=== PATIENT | female | born 1990 | race Caucasian/White ===

== ENCOUNTER → 2019-06-05 16:18 | Observation (INO) ==
[2019-06-05 15:13] LABS: Bilirubin,Urine Small (Negative); Blood,Urine Negative (Negative); Clarity,Urine Turbid (Clear); Color,Urine Dark Yellow (Yellow); Glucose,Urine (UA) Normal (Normal); Ketones,Urine Negative (Negative); Leukocyte Esterase,Urine Large (Negative); Nitrite,Urine Negative (Negative); Protein,Urine Trace mg/dL (Neg-Trace); Specific Gravity,Urine 1.023 (1.010-1.025)
[2019-06-05 15:16] LABS: Bacteria,Urine Many per hpf (None-Few); Hyaline Casts,Urine Moderate per lpf (None-Few); RBC,Urine 0-3 per hpf (0-3); Squamous Epithelial Cell,Urine Many per lpf (None-Few); WBC,Urine TNTC per hpf (0-3)
[2019-06-05 15:25] LABS: Calcium Oxalate Crystals,Urine Present
[2019-06-05 15:33] LABS: Amphetamine Screen,Urine Negative ng/mL (Cutoff=1000); Barbiturate Screen,Urine Negative ng/mL (Cutoff=200); Benzodiazepines Screen,Urine Negative ng/mL (Cutoff=200); Cannabinoid Screen,Urine Negative ng/mL (Cutoff = 50); Cocaine Screen,Urine Negative ng/mL (Cutoff= 300); Opiate Screen,Urine Negative ng/mL (Cutoff=300); Phencyclidine Screen,Urine Negative ng/mL (Cutoff=25)
--- NOTE | 2019-06-05 16:09 | Discharge Summary ---
Date of Encounter: 06/05/19 Time of Encounter: 16:08 - Discharge Diagnosis (1) 33 weeks gestation of Priority: Primary Status: Acute Comments: Admit to observation for labor evaluation (2) NST (non-stress test) reactive Priority: Secondary Status: Acute Comments: Category I tracing, appropriate for gestational age. (3) Urinary tract infection during in third trimester, antepartum Priority: Secondary Status: Acute Comments: Macrobid bid x 5 days Urine culture sent - Discharge Medications Prescriptions: New Nitrofurantoin (BID) [Macrobid] 100 mg PO BID #10 capsule No Action Vitamin Tablet 1 tab PO DAILY Nystatin POWDER [Nystop] 1 appl TP BID #30 gm metroNIDAZOLE [Metronidazole] 500 mg PO BID #14 tablet Home Medications: Nystatin POWDER [Nystop] 1 appl TP BID #30 gm 03/03/19 [Rx] Vitamin Tablet 1 tab PO DAILY 03/03/19 [History] metroNIDAZOLE [Metronidazole] 500 mg PO BID #14 tablet 03/03/19 [Rx] Nitrofurantoin (BID) [Macrobid] 100 mg PO BID #10 capsule 06/05/19 [Rx] Allergies/Adverse Reactions: Allergy/AdvReac Type Severity Reaction Status Date / Time No Known Allergies Allergy Verified 10/21/17 10:12 Data Procedures and tests throughout hospitalization: Laboratory Tests 06/05/19 06/05/19 15:06 15:07 Ur Specimen Adequacy See below A Urine Color Dark Yellow Urine Clarity Turbid A Urine pH 7.0 Ur Specific [place] 1.023 Urine Protein Trace Urine Glucose (UA) Normal Urine Ketones Negative Urine Blood Negative Urine Nitrite Negative Urine Bilirubin Small H Urine Urobilinogen 4.0 H Ur Leukocyte Esterase Large H Urine Microscopic RBC 0-3 Urine Microscopic WBC TNTC H Ur Squamous Epith Cells Many H Calcium Oxalate Crystal Present Urine Bacteria Many H Hyaline Casts Moderate H Ur Culture Indicated? YES A Urine Opiates Screen Negative Ur Buprenorphine Scrn Negative Ur Barbiturates Screen Negative Ur Phencyclidine Scrn Negative Ur Amphetamines Screen Negative U Benzodiazepines Scrn Negative Urine Cocaine Screen Negative U Marijuana (THC) Screen Negative Ur Drug Screen Interp See Below Labs on day of discharge: Labs from last 24 hours 06/05/19 06/05/19 15:07 15:06 Ur Specimen Adequacy See below A Urine Color Dark Yellow Urine Clarity Turbid A Urine pH 7.0 Ur Specific [place] 1.023 Urine Protein Trace Urine Glucose (UA) Normal Urine Ketones Negative Urine Blood Negative Urine Nitrite Negative Urine Bilirubin Small H Urine Urobilinogen 4.0 H Ur Leukocyte Esterase Large H Urine Microscopic RBC 0-3 Urine Microscopic WBC TNTC H Ur Squamous Epith Cells Many H Calcium Oxalate Crystal Present Urine Bacteria Many H Hyaline Casts Moderate H Ur Culture Indicated? YES A Urine Opiates Screen Negative Ur Buprenorphine Scrn Negative Ur Barbiturates Screen Negative Ur Phencyclidine Scrn Negative Ur Amphetamines Screen Negative U Benzodiazepines Scrn Negative Urine Cocaine Screen Negative U Marijuana (THC) Screen Negative Ur Drug Screen Interp See Below Date of admission: 06/05/19 14:15 Primary care physician: Delfin Montalvo MD Discharging clinician: Dannielle Tee Anticipated date of discharge: 06/05/19 - Patient Status Disposition: Home, Self-Care Condition: Good Functional capacity at discharge: independent ambulation Overall status at discharge: patient is progressing back to baseline - Discharge Instructions Follow Up With: Delfin Montalvo MD [Primary Care Provider] - Ranjith Shannon DO [Partnered Physician] - Additional Instructions: LABOR AND DELIVERY DISCHARGE INSTRUCTIONS Signs and Symptoms to be Reported to your Doctor Immediately: * Sudden gush, continuous or intermittent lead of fluid from vagina (note the time of gush and color of fluid) * Onset of bright red vaginal bleeding with or without pain (if you had a vaginal exam during this visit you may notice some dark red spotting. This is normal.) * Lower abdominal cramping or backache that is premenstrual-like feeling. * More than 6 contractions in one hour. * Burning during urination, having to urinate more frequently or pain in your mid-back. * A change in the baby's activity. This could be an increase or decrease in activity. * Severe headache which does not go away with tylenol. * Sudden swelling in the face, hands, arms and/or legs. * Upper abdominal pain - sometimes associated with heartburn or nausea and is not relieved by Maalox, Mylanta or Tums. * Dizziness or blurred vision or visual disturbances (seeing stars/lights). * Kick Counts One hour after a meal, lay down on one side in a quiet place. Count the number of irving the baby moves during an hour. If less than 6 movements, notify your physician. Diet: *Force fluids - 8-10 tall glasses of fluid per day. May include popsicles and jello. *Limit caffeine - this includes chocolate, coffee, tea, any soft drink containing such as all leana, [place] Yellow and Mountain Dew Keep scheduled follow up appt with Dr Shannon - Diet and Activity Activity: resume usual activities as tolerated Diet: regular diet Hospital Course [employer] Hospital course: Patient arrived with complaint of pelvic pain and pressure. She does report posi tive movement and denies fluid leakage and bleeding. Reactive FHR was noted and rare contractions. UA revealed signs of UTI so patient was prescribed 5 days of Macrobid. Urine culture was sent and patient informed she would be called if antibiotic change was needed based on culture result. SVE 1/thick/high. She is to follow up with Dr. Shannon on Wednesday as scheduled for routine care. Time Attestation: Total time spent providing and/or coordinating discharge services: Time Spent: Less than 30 minutes Exam - Constitutional General appearance IM: A&O X 3, pleasant, no acute distress, answers questions appropriately - Respiratory Respiratory exam: Present: CTAB. Absent: respiratory distress - Cardiovascular Cardiovascular exam IM: Present: RRR, +S1, +S2. Absent: irregular rhythm - GI/Abdominal GI/Abdominal exam IM: normal bowel sounds Incision: normal, dry, intact - Rectal Rectal exam: deferred - External exam: normal external exam (slight suprapubic tenderness) - Extremities Exam Extremities exam IM: Present: full ROM, normal capillary refill, normal inspection. Absent: calf tenderness - Neurological Exam Neurological exam: alert, normal gait, oriented X3 - VTE Reasons for not Prescribing Prophylaxis: Treatment not Indicated - Low risk for VTE
== END | disposition home or self-care (01) ==
LOC: 1NENULAB
PROVIDERS: ADMIT Obstetrics & Gynecology; ATTEND Obstetrics & Gynecology

== ENCOUNTER 2019-06-07 17:08 | Observation (INO) ==
[2019-06-07 17:49] VITALS: BP 113/78
--- NOTE | 2019-06-13 11:23 | OB/GYN Progress Note ---
Date of Encounter: 06/07/19 Time of Encounter: 18:00 - Assessment and Plan (1) 34 weeks gestation of Status: Acute Follow up as scheduled PTL precautions given Discharge home (2) Pelvic pressure in Status: Acute UA - culture pending. Subjective - Subjective Interval history: Pt presents with c/o pain and pressure in the pelvic area. Endorses good fm and denies lof, vb, ctx. Antepartum ROS: new complaints Objective - Exam FHR: category 1 Auscultation: bilateral: normal Abdomen: Present: normal appearance, soft, gravid Uterus: Present: normal, firm
== END 2019-06-07 18:09 | disposition home or self-care (01) ==
LOC: 1NENULAB
PROVIDERS: ADMIT Obstetrics & Gynecology; ATTEND Obstetrics & Gynecology

== ENCOUNTER → 2019-06-14 16:43 | Observation (INO) ==
[2019-06-14 16:29] LABS: Bilirubin,Urine Negative (Negative); Blood,Urine Negative (Negative); Clarity,Urine Cloudy (Clear); Color,Urine Yellow (Yellow); Glucose,Urine (UA) Normal (Normal); Ketones,Urine Negative (Negative); Leukocyte Esterase,Urine Moderate (Negative); Nitrite,Urine Negative (Negative); Protein,Urine Negative (Neg-Trace); Urobilinogen,Urine Normal (Normal)
[2019-06-14 16:33] LABS: Bacteria,Urine Few per hpf (None-Few); Hyaline Casts,Urine None Seen per lpf (None-Few); RBC,Urine 0-3 per hpf (0-3); Squamous Epithelial Cell,Urine Many per lpf (None-Few)
[2019-06-14 16:39] LABS: Amphetamine Screen,Urine Negative ng/mL (Cutoff=1000); Barbiturate Screen,Urine Negative ng/mL (Cutoff=200); Benzodiazepines Screen,Urine Negative ng/mL (Cutoff=200); Cannabinoid Screen,Urine Negative ng/mL (Cutoff = 50); Cocaine Screen,Urine Negative ng/mL (Cutoff= 300); Opiate Screen,Urine Negative ng/mL (Cutoff=300); Phencyclidine Screen,Urine Negative ng/mL (Cutoff=25)
--- NOTE | 2019-06-16 08:43 | OB/GYN Progress Note ---
Date of Encounter: 06/14/19 Time of Encounter: 18:30 - Assessment and Plan (1) 35 weeks gestation of Status: Acute Reactive NST No cervical change from previous exam in L&D Urine normal Discharge home with PTL precautions and follow up in office as scheduled. (2) NST (non-stress test) reactive Status: Acute (3) Pelvic pressure in Status: Acute Subjective - Subjective Principal diagnosis: Labor evaluation Interval history: Patient assessed by nurses. Not mine. Feeling pressure. Vaginal exam no change from previous exam. NST reactive. Antepartum ROS: movement normal Objective - Exam FHR: category 1 - Labs Labs: Abnormal lab results Urine Clarity Cloudy (Clear) A 06/14/19 16:00 Ur Leukocyte Esterase Moderate (Negative) H 06/14/19 16:00 Urine Microscopic WBC 3-5 per hpf (0-3) H 06/14/19 16:00 Ur Squamous Epith Cells Many per lpf (None-Few) H 06/14/19 16:00 Ur Culture Indicated? YES (NO) A 06/14/19 16:00
== END | disposition home or self-care (01) ==
LOC: 1NENULAB
PROVIDERS: ADMIT Advanced Practice Midwife; ATTEND Advanced Practice Midwife

== ENCOUNTER 2019-06-19 10:15 | Observation (INO) ==
[2019-06-19 11:14] LABS: Bilirubin,Urine Negative (Negative); Blood,Urine Negative (Negative); Clarity,Urine Cloudy (Clear); Color,Urine Yellow (Yellow); Glucose,Urine (UA) Normal (Normal); Ketones,Urine Negative (Negative); Leukocyte Esterase,Urine Large (Negative); Nitrite,Urine Negative (Negative); PH,Urine 7.5 pH Units (5.0-8.0); Protein,Urine Negative (Neg-Trace); Specific Gravity,Urine 1.015 (1.010-1.025); Urobilinogen,Urine Normal (Normal)
[2019-06-19 11:19] LABS: Hyaline Casts,Urine None Seen per lpf (None-Few); RBC,Urine 0-3 per hpf (0-3); Squamous Epithelial Cell,Urine Many per lpf (None-Few)
[2019-06-19 11:44] LABS: Bacteria,Urine Many per hpf (None-Few)
[2019-06-19 11:47] LABS: Yeast,Urine Few per hpf (None Seen)
[2019-06-19 13:10] LABS: Candida DNA DETECTED (Not Detect); Gardnerella DNA Not Detected (Not Detect); Trichomonas DNA Not Detected (Not Detect)
--- NOTE | 2019-06-19 13:29 | Discharge Summary ---
Date of Encounter: 06/19/19 Time of Encounter: 13:29 - Discharge Diagnosis (1) 35 weeks gestation of Priority: Primary Status: Acute Comments: Admit to observation for complaint of possible SROM (2) Candidiasis of vagina during Priority: Secondary Status: Acute Comments: Treat with Terazol cream (3) NST (non-stress test) reactive Priority: Secondary Status: Acute Comments: FHR 130 bpm, moderate variability, +15x15 accels, no decels. - Discharge Medications Prescriptions: New Terconazole Vag CRM [Terazol] 1 appl VG HS 3 Days #1 tube No Action Vitamin Tablet 1 tab PO DAILY raNITIdine HCl [Zantac] 150 mg PO BID Home Medications: Vitamin Tablet 1 tab PO DAILY 03/03/19 [History] Terconazole Vag CRM [Terazol] 1 appl VG HS 3 Days #1 tube 06/19/19 [Rx] raNITIdine HCl [Zantac] 150 mg PO BID 06/19/19 [History] Allergies/Adverse Reactions: Allergy/AdvReac Type Severity Reaction Status Date / Time No Known Allergies Allergy Verified 10/21/17 10:12 Data Procedures and tests throughout hospitalization: Laboratory Tests 06/19/19 06/19/19 06/19/19 10:45 10:45 11:13 Urine Color Yellow Urine Clarity Cloudy A Urine pH 7.5 Ur Specific [place] 1.015 Urine Protein Negative Urine Glucose (UA) Normal Urine Ketones Negative Urine Blood Negative Urine Nitrite Negative Urine Bilirubin Negative Urine Urobilinogen Normal Ur Leukocyte Esterase Large H Urine Microscopic RBC 0-3 Urine Microscopic WBC 5-15 H Ur Squamous Epith Cells Many H Urine Bacteria Many H Hyaline Casts None Seen Urine Yeast Few H Ur Culture Indicated? YES A Ur Drug Screen Interp See Below Glenda species DNA DETECTED A Gardnerella DNA Probe Not Detected Trichomonas DNA Probe Not Detected Labs on day of discharge: Labs from last 24 hours 06/19/19 06/19/19 06/19/19 11:13 10:45 10:45 Urine Color Yellow Urine Clarity Cloudy A Urine pH 7.5 Ur Specific [place] 1.015 Urine Protein Negative Urine Glucose (UA) Normal Urine Ketones Negative Urine Blood Negative Urine Nitrite Negative Urine Bilirubin Negative Urine Urobilinogen Normal Ur Leukocyte Esterase Large H Urine Microscopic RBC 0-3 Urine Microscopic WBC 5-15 H Ur Squamous Epith Cells Many H Urine Bacteria Many H Hyaline Casts None Seen Urine Yeast Few H Ur Culture Indicated? YES A Ur Drug Screen Interp See Below Glenda species DNA DETECTED A Gardnerella DNA Probe Not Detected Trichomonas DNA Probe Not Detected Preliminary micro results at discharge 06/19/19 10:45 Urine Culture - Preliminary Urine,Clean Catch Culture is incubating. Date of admission: 06/19/19 10:15 Primary care physician: Delfin Montalvo MD Discharging clinician: Dannielle Tee Anticipated date of discharge: 06/19/19 - Patient Status Disposition: Home, Self-Care Condition: Good Functional capacity at discharge: independent ambulation Overall status at discharge: patient is progressing back to baseline - Discharge Instructions Follow Up With: Delfin Montalvo MD [Primary Care Provider] - Ranjith Shannon DO [Partnered Physician] - - Diet and Activity Activity: resume usual activities as tolerated Diet: regular diet Hospital Course [employer] Hospital course: Patient arrived with complaint of possible SROM this morning at 0800. Denies any vaginal intercourse in the past 48 hours. She does report positive movement and denies vaginal bleeding and contractions. Sterile speculum exam reveals no amniotic fluid in the vaginal vault or with valsalva maneuver. FERN was negative as well as nitrazine paper. Vaginosis panel did return positive for yeast, so she was given a prescription for Terazol cream. Patient is to return to OB for routine appointment as scheduled. Time Attestation: Total time spent providing and/or coordinating discharge services: Time Spent: Less than 30 minutes Exam - Constitutional General appearance IM: A&O X 3, no acute distress - Respiratory Respiratory exam: Absent: respiratory distress - Cardiovascular Cardiovascular exam IM: Present: RRR, +S1, +S2. Absent: irregular rhythm - GI/Abdominal GI/Abdominal exam IM: normal bowel sounds, soft - Rectal Rectal exam: deferred - External exam: normal external exam - Extremities Exam Extremities exam IM: Present: full ROM, normal capillary refill, normal inspection. Absent: calf tenderness - Neurological Exam Neurological exam: alert, normal gait, oriented X3 - VTE Reasons for not Prescribing Prophylaxis: Treatment not Indicated - Low risk for VTE
[2019-06-19 14:46] LABS: Amphetamine Screen,Urine Negative ng/mL (Cutoff=1000); Barbiturate Screen,Urine Negative ng/mL (Cutoff=200); Benzodiazepines Screen,Urine Negative ng/mL (Cutoff=200); Cannabinoid Screen,Urine Negative ng/mL (Cutoff = 50); Cocaine Screen,Urine Negative ng/mL (Cutoff= 300); Opiate Screen,Urine Negative ng/mL (Cutoff=300); Phencyclidine Screen,Urine Negative ng/mL (Cutoff=25)
== END 2019-06-19 13:56 | disposition home or self-care (01) ==
LOC: 1NENULAB
PROVIDERS: ADMIT Registered Nurse; ATTEND Registered Nurse

== ENCOUNTER 2019-06-25 19:23 | Observation (INO) ==
[2019-06-25 20:54] LABS: Amphetamine Screen,Urine Negative ng/mL (Cutoff=1000); Barbiturate Screen,Urine Negative ng/mL (Cutoff=200); Benzodiazepines Screen,Urine Negative ng/mL (Cutoff=200); Cannabinoid Screen,Urine Negative ng/mL (Cutoff = 50); Cocaine Screen,Urine Negative ng/mL (Cutoff= 300); Opiate Screen,Urine Negative ng/mL (Cutoff=300); Phencyclidine Screen,Urine Negative ng/mL (Cutoff=25)
== END 2019-06-25 20:50 | disposition home or self-care (01) ==
LOC: 1NENULAB
PROVIDERS: ADMIT Advanced Practice Midwife; ATTEND Advanced Practice Midwife

== ENCOUNTER 2019-06-27 12:51 | Observation (INO) ==
[2019-06-27 13:56] LABS: Bilirubin,Urine Negative (Negative); Blood,Urine Trace (Negative); Clarity,Urine Clear (Clear); Color,Urine Dark Yellow (Yellow); Glucose,Urine (UA) Normal (Normal); Ketones,Urine Negative (Negative); Leukocyte Esterase,Urine Moderate (Negative); Nitrite,Urine Negative (Negative); PH,Urine 6.5 pH Units (5.0-8.0); Protein,Urine Trace mg/dL (Neg-Trace); Specific Gravity,Urine 1.023 (1.010-1.025); Urobilinogen,Urine Normal (Normal)
[2019-06-27 13:59] LABS: Bacteria,Urine Moderate per hpf (None-Few); Hyaline Casts,Urine None Seen per lpf (None-Few); RBC,Urine 15-30 per hpf (0-3); Squamous Epithelial Cell,Urine Many per lpf (None-Few); WBC,Urine 15-30 per hpf (0-3)
[2019-06-27 14:24] LABS: Amphetamine Screen,Urine Negative ng/mL (Cutoff=1000); Barbiturate Screen,Urine Negative ng/mL (Cutoff=200); Benzodiazepines Screen,Urine Negative ng/mL (Cutoff=200); Cannabinoid Screen,Urine Negative ng/mL (Cutoff = 50); Cocaine Screen,Urine Negative ng/mL (Cutoff= 300); Opiate Screen,Urine Negative ng/mL (Cutoff=300); Phencyclidine Screen,Urine Negative ng/mL (Cutoff=25)
== END 2019-06-27 14:36 | disposition home or self-care (01) ==
LOC: 1NENULAB
PROVIDERS: ADMIT Advanced Practice Midwife; ATTEND Advanced Practice Midwife

== ENCOUNTER → 2019-07-03 01:57 | Observation (INO) ==
[2019-07-03 00:56] LABS: Bilirubin,Urine Negative (Negative); Blood,Urine Negative (Negative); Clarity,Urine Cloudy (Clear); Color,Urine Yellow (Yellow); Glucose,Urine (UA) Normal (Normal); Ketones,Urine Negative (Negative); Leukocyte Esterase,Urine Small (Negative); Nitrite,Urine Negative (Negative); Protein,Urine Trace mg/dL (Neg-Trace); Specific Gravity,Urine 1.018 (1.010-1.025); Urobilinogen,Urine Normal (Normal)
[2019-07-03 00:58] LABS: Bacteria,Urine Few per hpf (None-Few); Hyaline Casts,Urine None Seen per lpf (None-Few); RBC,Urine 0-3 per hpf (0-3); Squamous Epithelial Cell,Urine Many per lpf (None-Few)
[2019-07-03 01:05] LABS: Amphetamine Screen,Urine Negative ng/mL (Cutoff=1000); Barbiturate Screen,Urine Negative ng/mL (Cutoff=200); Benzodiazepines Screen,Urine Negative ng/mL (Cutoff=200); Cannabinoid Screen,Urine Negative ng/mL (Cutoff = 50); Cocaine Screen,Urine Negative ng/mL (Cutoff= 300); Opiate Screen,Urine Negative ng/mL (Cutoff=300); Phencyclidine Screen,Urine Negative ng/mL (Cutoff=25)
[2019-07-03 02:37] LABS: Candida DNA Not Detected (Not Detect); Gardnerella DNA Not Detected (Not Detect); Trichomonas DNA Not Detected (Not Detect)
== END | disposition home or self-care (01) ==
LOC: 1NENULAB
PROVIDERS: ADMIT Registered Nurse; ATTEND Registered Nurse

== ENCOUNTER 2019-07-09 05:55 | Inpatient (IN) ==
[2019-07-09] MEDS ORDERED: Ringers Solution, Lactated 1,000 ML ONE (06:00)
[2019-07-09] MEDS ORDERED: Metoclopramide 10 MG/2 ML VIAL IVP PRN (06:30)
[2019-07-09] MEDS ORDERED: Ringers Solution, Lactated 1,000 ML IVC SCH (06:30)
[2019-07-09] MEDS ORDERED: *HR* Nalbuphine 10 MG/ML AMPUL IVP PRN (06:30)
[2019-07-09] MEDS ORDERED: Naloxone 0.4 MG/ML INJ IVP PRN (06:30)
[2019-07-09] MEDS ORDERED: Famotidine 20 MG/2 ML VIAL IVP PRN (06:30)
[2019-07-09] MEDS ORDERED: Ondansetron 4 MG/2 ML VIAL IVP PRN (06:30)
[2019-07-09] MEDS ORDERED: miSOPROStoL 25 MCG TABLET VG PRN (06:30)
[2019-07-09 07:19] LABS: Basophils # 0.1 K/mcL (0.0-0.2); Basophils % 0.6 %; Eosinophils # 0.2 K/mcL (0.0-0.6); Eosinophils % 1.7 %; Hematocrit 37.9 % (35.3-44.9); Hemoglobin 13.2 g/dL (11.5-15.4); Immature Granulocytes % 0.4 % (0-4); Lymphocytes # 2.5 K/mcL (0.6-4.6); Lymphocytes % 25.7 %; Mean Corpuscular HGB Conc 34.8 g/dL (31.6-35.5); Mean Corpuscular Hemoglobin 30.2 pg (28.0-33.3); Mean Corpuscular Volume 86.7 fL (83.0-100.0); Mean Platelet Volume 10.9 fL (9.4-12.4); Monocytes # 0.9 K/mcL (0.0-1.3); Monocytes % 9.1 %; Neutrophils # 6.1 K/mcL (1.6-8.9); Platelet Count 254 K/mcL (140-400); Red Blood Count 4.37 M/mcL (3.82-4.97); Red Cell Distribution Width 12.8 % (11.5-14.5); Segmented Neutrophils % 62.5 %; White Blood Count 9.8 K/mcL (4.3-11.1)
[2019-07-09 09:13] LABS: Amphetamine Screen,Urine Negative ng/mL (Cutoff=1000); Barbiturate Screen,Urine Negative ng/mL (Cutoff=200); Benzodiazepines Screen,Urine Negative ng/mL (Cutoff=200); Cannabinoid Screen,Urine Negative ng/mL (Cutoff = 50); Cocaine Screen,Urine Negative ng/mL (Cutoff= 300); Opiate Screen,Urine Negative ng/mL (Cutoff=300); Phencyclidine Screen,Urine Negative ng/mL (Cutoff=25)
[2019-07-09] MEDS ORDERED: Oxytocin 20 units/ LR 1000 mL 20 UNIT/1,000 ML BAG IVC SCH (09:30)
[2019-07-09] MEDS ORDERED: *HR* FentaNYL (PF) 100 MCG/2 ML VIAL EP ONE (10:24)
[2019-07-09] MEDS ORDERED: Ropivacaine/PF 0.2% 20 ML VIAL EP ONE (10:24)
[2019-07-09] MEDS ORDERED: Epidural Premix (fent/bupiv) 110 ML EP SCH (10:30)
[2019-07-09] MEDS ORDERED: Ropivacaine/PF 0.2% 20 ML VIAL ONE (12:58)
[2019-07-09] MEDS ORDERED: *HR* FentaNYL (PF) 100 MCG/2 ML VIAL ONE (12:58)
[2019-07-09] MEDS ORDERED: Lidocaine -MPF 1% 5 ML AMPUL ONE (18:07)
[2019-07-09] MEDS ORDERED: Acetaminophen 325 MG TABLET PO ONE (21:43)
[2019-07-10] MEDS ORDERED: Lidocaine -MPF 1% 5 ML AMPUL ONE (00:03)
[2019-07-10] MEDS ORDERED: Oxytocin 20 units/ LR 1000 mL 20 UNIT/1,000 ML BAG IVC SCH (02:47)
[2019-07-10] MEDS ORDERED: Benzocaine/Menthol 56 GM AEROSOL SPRAY TP PRN (02:47)
[2019-07-10] MEDS ORDERED: *HR* HYDROcodone/Acet 5/325 mg TABLET PO PRN (02:47)
[2019-07-10] MEDS ORDERED: Acetaminophen 325 MG TABLET PO PRN (02:47)
[2019-07-10] MEDS ORDERED: Rho Immune Globulin 1,500 UNIT SYRINGE IM PRN (02:47)
[2019-07-10 06:32] LABS: Basophils % 0.1 %; Hematocrit 33.1 % (35.3-44.9); Immature Granulocytes % 0.6 % (0-4); Lymphocytes # 1.3 K/mcL (0.6-4.6); Lymphocytes % 5.3 %; Mean Corpuscular Hemoglobin 30.7 pg (28.0-33.3); Mean Corpuscular Volume 87.6 fL (83.0-100.0); Mean Platelet Volume 10.1 fL (9.4-12.4); Monocytes # 1.5 K/mcL (0.0-1.3); Monocytes % 6.4 %; Neutrophils # 20.8 K/mcL (1.6-8.9); Platelet Count 204 K/mcL (140-400); Red Blood Count 3.78 M/mcL (3.82-4.97); Red Cell Distribution Width 12.9 % (11.5-14.5); Segmented Neutrophils % 87.6 %
[2019-07-10 06:35] LABS: Hemoglobin 11.6 g/dL (11.5-15.4); White Blood Count 23.7 K/mcL (4.3-11.1)
[2019-07-10] MEDS: Prenatal Vit/FA 1 EACH TABLET PO SCH (08:16)
[2019-07-10] MEDS: Ibuprofen 600 MG TABLET PO PRN ×2 (08:16→19:57)
[2019-07-11] MEDS: Ibuprofen 600 MG TABLET PO PRN (08:57)
[2019-07-11] MEDS: Prenatal Vit/FA 1 EACH TABLET PO SCH (08:57)
[2019-07-11 10:18] VITALS: BP 129/89
== END 2019-07-11 13:18 | disposition home or self-care (01) | DRG 560 ==
LOC: 1NENULAB 05:55 → 1NENUOBS 07-10 02:34
PROVIDERS: ADMIT Obstetrics & Gynecology; ATTEND Obstetrics & Gynecology